=== PATIENT | male | born 1980 | race Caucasian/White ===

== ENCOUNTER 2022-01-02 00:22 | Emergency (ER) | payer MEDICAID ==
[~2022-01-02] VITALS: Ht 180.3 cm; Wt 75.5 kg
[2022-01-02 01:26] LABS: CLARITY,URINE CLOUDY (Clear); COLOR,URINE YELLOW (Yellow); GLUCOSE, URINE NEGATIVE (Neg); KETONES,URINE NEGATIVE (Neg); LEUKOCYTE ESTERASE ,URINE MODERATE (Neg); NITRITES, URINE POSITIVE (Neg); OCCULT BLOOD,URINE MODERATE (Neg); PH,URINE 6.5 (4.8-8.0); PROTEIN,URINE 30 mg/dl (Neg); UROBILINOGEN,URINE 0.2 E.U/dL (0.2-1.0)
[2022-01-02 01:29] LABS: UA COLLECTION TYPE CLN CATCH MIDSTREAM
[2022-01-02 01:31] LABS: SQUAMOUS EPITHELIAL CELL,UR FEW /LPF (FEW); WBC,URINE TNTC /HPF (0-4)
[2022-01-02 01:32] LABS: MUCUS STRANDS FEW /LPF (Neg)
[2022-01-02 01:33] LABS: BACTERIA,URINE 4+ /HPF (Neg)
[2022-01-02] MEDS ORDERED: cephalexin 250mg capsule PO ONE (03:55)
[2022-01-02 04:16] LABS: BASOPHILS # (AUTO) 0.1 X10'3 (0-0.2); BASOPHILS % (AUTO) 0.4 % (0-1); EOSINOPHILS # (AUTO) 0.1 X10'3 (0-0.9); EOSINOPHILS % (AUTO) 0.3 % (0-6); HEMATOCRIT 37.9 % (42.0-52.0); HEMOGLOBIN 12.6 g/dl (14.0-17.9); LYMPHOCYTES # (AUTO) 1.1 X10'3 (1.1-4.8); LYMPHOCYTES % (AUTO) 4.7 % (21-51); MEAN CORPUSCULAR HEMOGLOBIN 29.9 PG (27.0-31.0); MEAN CORPUSCULAR HGB CONC 33.2 g/dL (33.0-36.5); MEAN CORPUSCULAR VOLUME 89.8 FL (78-98); MEAN PLATELET VOLUME 6.5 FL (7.4-10.4); MONOCYTES # (AUTO) 2.1 X10'3 (0-0.9); NEUTROPHILS # (AUTO) 20.1 X10'3 (1.8-7.7); NEUTROPHILS % (AUTO) 85.6 % (42-75); PLATELET COUNT 319 X10'3 (140-440); RED BLOOD COUNT 4.22 X10'6 (4.70-6.10); RED CELL DISTRIBUTION WIDTH 14.5 % (11.5-14.5); WHITE BLOOD COUNT 23.4 X10'3 (4.5-11.0)
[2022-01-02 04:34] LABS: ANION GAP 3 (8-16); BLOOD UREA NITROGEN 11 MG/DL (7-18); CALCIUM 8.6 MG/DL (8.5-10.1); CHLORIDE 99 MMOL/L (99-107); GLUCOSE 158 MG/DL (70-104); POTASSIUM 3.6 MMOL/L (3.5-5.1); SODIUM 131 MMOL/L (135-145); TOTAL CARBON DIOXIDE 28.7 MMOL/L (24-32); eGFR 83 ML/MIN
[2022-01-02] MEDS ORDERED: CEPH-585 PO (05:18)
[2022-01-02] MEDS ORDERED: normal saline 1000ml 1,000 ML IV ONE ×2 (05:20)
[2022-01-02 07:12] VITALS: BP 142/90
== END 2022-01-02 07:14 | disposition home or self-care (01) ==
LOC: ER 00:23
DX: N10 Acute pyelonephritis (principal); R31.9 Hematuria, unspecified; N39.0 Urinary tract infection, site not specified; R10.84 Generalized abdominal pain; N50.811 Right testicular pain; R30.0 Dysuria; G89.29 Other chronic pain; Z79.2 Long term (current) use of antibiotics
CPT/HCPCS: 36415; 74176; 80048; 81001; 85025; 87077; 87088; 87186; 96360; 96361; 99284; J7030

== ENCOUNTER 2022-01-20 13:08 | Inpatient (IN) | payer MEDICAID ==
[~2022-01-20] VITALS: Ht 177.8 cm; Wt 68.2 kg
[~2022-01-20 13:08] MED LIST: CEPH-585 PO
[2022-01-20] MEDS ORDERED: CefTRIAXone 2gm/D5W 50ml BAG 50 ML IV ONE ×2 (13:20→14:55)
[2022-01-20] MEDS ORDERED: normal saline 1000ML IV soln IV ONE (13:20)
[2022-01-20] MEDS ORDERED: acetaminophen 325mg tablet PO STA (13:20)
[2022-01-20 14:16] LABS: BASOPHILS % (AUTO) 0.2 % (0-1); EOSINOPHILS % (AUTO) 0 % (0-6); HEMATOCRIT 37.2 % (42.0-52.0); HEMOGLOBIN 12.4 g/dl (14.0-17.9); LYMPHOCYTES # (AUTO) 0.8 X10'3 (1.1-4.8); MEAN CORPUSCULAR HEMOGLOBIN 29.6 PG (27.0-31.0); MEAN CORPUSCULAR HGB CONC 33.4 g/dL (33.0-36.5); MEAN CORPUSCULAR VOLUME 88.7 FL (78-98); MEAN PLATELET VOLUME 7.5 FL (7.4-10.4); MONOCYTES # (AUTO) 1.8 X10'3 (0-0.9); MONOCYTES % (AUTO) 8.8 % (2-12); NEUTROPHILS # (AUTO) 17.8 X10'3 (1.8-7.7); PLATELET COUNT 495 X10'3 (140-440); RED BLOOD COUNT 4.19 X10'6 (4.70-6.10); WHITE BLOOD COUNT 20.4 X10'3 (4.5-11.0)
[2022-01-20 14:26] LABS: LACTIC SEPSIS 1.4 MMOL/L (0.4-2.0)
[2022-01-20 14:36] LABS: ALANINE AMINOTRANSFERASE 76 U/L (12-78); ALBUMIN 3.1 G/DL (3.4-5.0); ALBUMIN/GLOBULIN RATIO 0.7 (1.1-1.5); ALKALINE PHOSPHATASE 262 IU/L (46-116); ANION GAP 10 (8-16); ASPARTATE AMINO TRANSFERASE 111 U/L (10-37); BILIRUBIN,TOTAL 0.9 MG/DL (0.1-1.0); BLOOD UREA NITROGEN 13 MG/DL (7-18); CHLORIDE 93 MMOL/L (99-107); ETHANOL < 0.010 GM/DL (0.0-0.010); GLUCOSE 123 MG/DL (70-104); MAGNESIUM 1.8 MG/DL (1.5-2.4); POTASSIUM 4.5 MMOL/L (3.5-5.1); SODIUM 129 MMOL/L (135-145); TOTAL CARBON DIOXIDE 25.9 MMOL/L (24-32); TOTAL PROTEIN 7.6 G/DL (6.4-8.2); eGFR 83 ML/MIN
[2022-01-20] MEDS ORDERED: DOXYCYCLINE 100MG CAPSULE PO STA (14:52)
[2022-01-20] MEDS ORDERED: normal saline 1000ml 1,000 ML IV ONE ×2 (14:55)
[2022-01-20] MEDS ORDERED: morphine 4 MG/ML inj SYRINge IV ONE (14:55)
[2022-01-20] MEDS ORDERED: ketorolac trometh. 30mg/ml inj. IV ONE (14:55)
[2022-01-20 16:06] LABS: CLARITY,URINE CLOUDY (Clear); COLOR,URINE YELLOW (Yellow); GLUCOSE, URINE NEGATIVE (Neg); KETONES,URINE NEGATIVE (Neg); LEUKOCYTE ESTERASE ,URINE SMALL (Neg); NITRITES, URINE POSITIVE (Neg); OCCULT BLOOD,URINE TRACE-INTACT (Neg); PROTEIN,URINE NEGATIVE (Neg)
[2022-01-20 16:11] LABS: UA COLLECTION TYPE URINAL
[2022-01-20 16:12] LABS: HYALINE CASTS 0-3 /LPF (NEGATIVE)
[2022-01-20 16:13] LABS: BACTERIA,URINE 2+ /HPF (Neg); RBC,URINE 0-2 /HPF (0-2); SQUAMOUS EPITHELIAL CELL,UR FEW /LPF (FEW)
[2022-01-20 16:19] LABS: URINE AMPHETAMINE SCREEN POSITIVE (Neg); URINE BARBITUATE SCREEN NEGATIVE (Neg); URINE BENZODIAZEPINES SCREEN NEGATIVE (Neg); URINE CANNABINOID SCREEN POSITIVE (Neg); URINE COCAINE SCREEN NEGATIVE (Neg); URINE METHADONE SCREEN NEGATIVE (Neg); URINE OPIATE SCREEN NEGATIVE (Neg); URINE PHENCYCLIDINE SCREEN NEGATIVE (Neg)
[2022-01-20] MEDS ORDERED: NO HOME MEDS (16:25)
--- NOTE | 2022-01-20 16:31 | NUR ---
pt diaphoretic and reports his iv is "falling out." new iv placed in left foerarm
[2022-01-20] MEDS ORDERED: magnesium 2GM in 50ml NS 50 ML IV PRN (17:15)
[2022-01-20] MEDS ORDERED: magnesium hydroxide 30ml (MOM) UD suspension PO PRN (17:15)
[2022-01-20] MEDS ORDERED: HYDROcodone/acetaminophen 5mg/325mg tablet PO PRN (17:15)
[2022-01-20] MEDS ORDERED: potassium Cl 20 mEq SR tablet PO PRN ×2 (17:15)
[2022-01-20] MEDS ORDERED: mag hydrox/Alum hydrox/simeth 30ml oral suspension PO PRN (17:15)
[2022-01-20] MEDS ORDERED: magnesium Cl slow-release 64mg tablet PO PRN (17:15)
[2022-01-20] MEDS ORDERED: ondansetron/PF 4mg/2ml inj IV PRN (17:15)
[2022-01-20] MEDS ORDERED: magnesium 4gm in 100ml NS 100 ML IV PRN (17:15)
[2022-01-20] MEDS ORDERED: morphine 2 MG/ML inj. syringe IV PRN ×2 (17:15)
[2022-01-20] MEDS ORDERED: acetaminophen 325mg tablet PO PRN (17:15)
[2022-01-20] MEDS ORDERED: potassium CL 10mEq/100ml bag 100 ML IV PRN (17:15)
[2022-01-20] MEDS: docusate sod 100mg capsule PO SCH (20:00)
[2022-01-20] MEDS: K and/or MAG REPLACEMENT MC SCH (20:00)
[2022-01-20] MEDS: DOXYCYCLINE 100MG CAPSULE PO SCH (21:51)
[2022-01-20] MEDS: dextrose 5%-1/2 normal saline 1,000 ML IV SCH (22:13)
[2022-01-21] MEDS: HYDROcodone/acetaminophen 10/325mg tab PO PRN ×2 (00:40→18:00)
[2022-01-21 04:06] VITALS: BP 109/62
[2022-01-21 06:01] LABS: BASOPHILS # (AUTO) 0.1 X10'3 (0-0.2); BASOPHILS % (AUTO) 0.5 % (0-1); EOSINOPHILS % (AUTO) 0.2 % (0-6); HEMATOCRIT 30.7 % (42.0-52.0); HEMOGLOBIN 10.1 g/dl (14.0-17.9); LYMPHOCYTES # (AUTO) 1.8 X10'3 (1.1-4.8); LYMPHOCYTES % (AUTO) 6.5 % (21-51); MEAN CORPUSCULAR HEMOGLOBIN 29.2 PG (27.0-31.0); MEAN CORPUSCULAR HGB CONC 32.8 g/dL (33.0-36.5); MEAN CORPUSCULAR VOLUME 89.3 FL (78-98); MEAN PLATELET VOLUME 7.7 FL (7.4-10.4); MONOCYTES # (AUTO) 2.8 X10'3 (0-0.9); MONOCYTES % (AUTO) 10.3 % (2-12); NEUTROPHILS # (AUTO) 22.4 X10'3 (1.8-7.7); NEUTROPHILS % (AUTO) 82.5 % (42-75); PLATELET COUNT 387 X10'3 (140-440); RED BLOOD COUNT 3.44 X10'6 (4.70-6.10); RED CELL DISTRIBUTION WIDTH 14.7 % (11.5-14.5)
[2022-01-21 06:05] LABS: WHITE BLOOD COUNT 27.1 X10'3 (4.5-11.0)
[2022-01-21 06:36] LABS: ALANINE AMINOTRANSFERASE 47 U/L (12-78); ALBUMIN 2.2 G/DL (3.4-5.0); ALBUMIN/GLOBULIN RATIO 0.7 (1.1-1.5); ALKALINE PHOSPHATASE 179 IU/L (46-116); ANION GAP 7 (8-16); ASPARTATE AMINO TRANSFERASE 45 U/L (10-37); BLOOD UREA NITROGEN 16 MG/DL (7-18); BUN/CREATININE RATIO 16.5 (5.4-32.0); CALCIUM 8.2 MG/DL (8.5-10.1); CHLORIDE 100 MMOL/L (99-107); CREATININE 0.97 MG/DL (0.60-1.10); GLUCOSE 90 MG/DL (70-104); MAGNESIUM 1.9 MG/DL (1.5-2.4); POTASSIUM 4.3 MMOL/L (3.5-5.1); SODIUM 135 MMOL/L (135-145); TOTAL CARBON DIOXIDE 28.1 MMOL/L (24-32); TOTAL PROTEIN 5.3 G/DL (6.4-8.2); eGFR 86 ML/MIN
[2022-01-21 06:49] LABS: PLATELET ESTIMATE NORMAL; TOTAL CELLS COUNTED 100
[2022-01-21 08:00] VITALS: BP 95/58
[2022-01-21] MEDS: DOXYCYCLINE 100MG CAPSULE PO SCH ×2 (08:45→19:47)
[2022-01-21] MEDS: enoxaparin 40mg/0.4ml syringe SUBCUT SCH (08:45)
[2022-01-21] MEDS: K and/or MAG REPLACEMENT MC SCH ×2 (08:45→19:41)
[2022-01-21] MEDS: docusate sod 100mg capsule PO SCH ×2 (08:45→19:47)
--- NOTE | 2022-01-21 08:45 | NUR ---
Met with patient in regards to substance use and to see if patient would like resources for treatment options. Patient is interested in treatment but he wants his to go with him. I gave patient beacons number, a community referral guide and my card to call me if he has any questions.
[2022-01-21] MEDS: CefTRIAXone/D5W-Rocephin 1gm 50 ML IV SCH (08:46)
[2022-01-21] MEDS: dextrose 5%-1/2 normal saline 1,000 ML IV SCH ×3 (08:46→23:15)
--- NOTE | 2022-01-21 09:40 | NUR ---
Malnutrition screen: Pt admit dx pyelonephritis and meth abuse per EMR. Pt reports 2-13 lb wt loss and decreased appetite per RN malnutrition screen. Pt has R testicle non-pitting edema, no muscle weakness, and no wounds per documentation. Pt w/ current scaled wt 68kg and no recent scaled wt hx, current scaled wt appropriate for age. Pending PO intake on regular diet. Pt lacks minimum two malnutrition criteria at this time. Will monitor for nutrient needs this admit. Addendum: 01/21/22 at 0941 by Jessica Cooper [facility] [facility] Coordinator TUSHAR Amended: Links added. Addendum: 01/21/22 at [address] I have reviewed and agree with note by Fitness And Wellness CoordinatorDaxa Roberts RD
[2022-01-21 12:00] VITALS: BP 95/47
[2022-01-21 19:00] VITALS: BP 107/71
[2022-01-22] VITALS: BP 103/62
[2022-01-22] MEDS: HYDROcodone/acetaminophen 10/325mg tab PO PRN ×2 (03:18→07:54)
[2022-01-22 06:20] LABS: BASOPHILS # (AUTO) 0.1 X10'3 (0-0.2); BASOPHILS % (AUTO) 0.4 % (0-1); EOSINOPHILS # (AUTO) 0.1 X10'3 (0-0.9); EOSINOPHILS % (AUTO) 0.8 % (0-6); HEMOGLOBIN 9.9 g/dl (14.0-17.9); LYMPHOCYTES # (AUTO) 1.9 X10'3 (1.1-4.8); LYMPHOCYTES % (AUTO) 9.6 % (21-51); MEAN CORPUSCULAR HEMOGLOBIN 29.2 PG (27.0-31.0); MEAN CORPUSCULAR VOLUME 88.5 FL (78-98); MEAN PLATELET VOLUME 7.7 FL (7.4-10.4); MONOCYTES # (AUTO) 1.5 X10'3 (0-0.9); MONOCYTES % (AUTO) 7.4 % (2-12); NEUTROPHILS # (AUTO) 16.1 X10'3 (1.8-7.7); NEUTROPHILS % (AUTO) 81.8 % (42-75); PLATELET COUNT 401 X10'3 (140-440); RED BLOOD COUNT 3.39 X10'6 (4.70-6.10); RED CELL DISTRIBUTION WIDTH 15.4 % (11.5-14.5); WHITE BLOOD COUNT 19.8 X10'3 (4.5-11.0)
--- NOTE | 2022-01-22 06:25 | NUR ---
Patient remains on pain management for testicle pain. Report given to [facility] nurse, RILEY Silva
[2022-01-22 06:54] LABS: ALANINE AMINOTRANSFERASE 43 U/L (12-78); ALBUMIN 2.2 G/DL (3.4-5.0); ALBUMIN/GLOBULIN RATIO 0.5 (1.1-1.5); ALKALINE PHOSPHATASE 179 IU/L (46-116); ANION GAP 7 (8-16); ASPARTATE AMINO TRANSFERASE 27 U/L (10-37); BILIRUBIN,TOTAL 0.3 MG/DL (0.1-1.0); BLOOD UREA NITROGEN 14 MG/DL (7-18); BUN/CREATININE RATIO 16.7 (5.4-32.0); CALCIUM 8.5 MG/DL (8.5-10.1); CHLORIDE 101 MMOL/L (99-107); CREATININE 0.84 MG/DL (0.60-1.10); FERRITIN 822 NG/ML (26-388); GLUCOSE 103 MG/DL (70-104); SODIUM 135 MMOL/L (135-145); TOTAL CARBON DIOXIDE 27.1 MMOL/L (24-32); TOTAL PROTEIN 6.8 G/DL (6.4-8.2); eGFR > 90 ML/MIN
[2022-01-22 07:00] VITALS: BP 96/55
[2022-01-22 07:45] LABS: % IRON SATURATION 12 % (11-46); IRON 21 UG/DL (53-167); TOTAL IRON BINDING CAPACITY 180 UG/DL (259-388)
[2022-01-22] MEDS: docusate sod 100mg capsule PO SCH ×2 (07:54→20:08)
[2022-01-22] MEDS: CefTRIAXone/D5W-Rocephin 1gm 50 ML IV SCH (07:54)
[2022-01-22] MEDS: DOXYCYCLINE 100MG CAPSULE PO SCH ×2 (07:54→20:08)
[2022-01-22] MEDS: enoxaparin 40mg/0.4ml syringe SUBCUT SCH (07:54)
[2022-01-22] MEDS: K and/or MAG REPLACEMENT MC SCH ×2 (07:55→20:00)
[2022-01-22] MEDS: dextrose 5%-1/2 normal saline 1,000 ML IV SCH ×2 (09:15→23:38)
[2022-01-22] MEDS ORDERED: ferrous sulfate ER tablet PO (10:22)
[2022-01-22] MEDS ORDERED: SULF1TAB49 PO (10:22)
[2022-01-22] MEDS ORDERED: DOXY-224 PO (10:22)
[2022-01-22 12:00] VITALS: BP 99/56
[2022-01-22 18:00] VITALS: BP 109/76
[2022-01-22] MEDS: ferrous sulfate ER tablet 140 MG TABLET.ER PO SCH (20:08)
[2022-01-23] VITALS: BP 110/69
[2022-01-23] MEDS: dextrose 5%-1/2 normal saline 1,000 ML IV SCH (05:15)
[2022-01-23 06:14] LABS: BASOPHILS # (AUTO) 0.1 X10'3 (0-0.2); BASOPHILS % (AUTO) 0.6 % (0-1); EOSINOPHILS # (AUTO) 0.2 X10'3 (0-0.9); EOSINOPHILS % (AUTO) 1.4 % (0-6); HEMATOCRIT 32.5 % (42.0-52.0); HEMOGLOBIN 10.7 g/dl (14.0-17.9); LYMPHOCYTES # (AUTO) 1.9 X10'3 (1.1-4.8); LYMPHOCYTES % (AUTO) 15.8 % (21-51); MEAN CORPUSCULAR HEMOGLOBIN 29.1 PG (27.0-31.0); MEAN CORPUSCULAR HGB CONC 32.9 g/dL (33.0-36.5); MEAN CORPUSCULAR VOLUME 88.7 FL (78-98); MEAN PLATELET VOLUME 7.4 FL (7.4-10.4); MONOCYTES # (AUTO) 0.9 X10'3 (0-0.9); MONOCYTES % (AUTO) 7.9 % (2-12); NEUTROPHILS # (AUTO) 8.9 X10'3 (1.8-7.7); NEUTROPHILS % (AUTO) 74.3 % (42-75); PLATELET COUNT 465 X10'3 (140-440); RED BLOOD COUNT 3.66 X10'6 (4.70-6.10); RED CELL DISTRIBUTION WIDTH 15.4 % (11.5-14.5)
[2022-01-23 06:32] LABS: ALANINE AMINOTRANSFERASE 36 U/L (12-78); ALBUMIN 2.3 G/DL (3.4-5.0); ALBUMIN/GLOBULIN RATIO 0.6 (1.1-1.5); ALKALINE PHOSPHATASE 171 IU/L (46-116); ANION GAP 7 (8-16); ASPARTATE AMINO TRANSFERASE 18 U/L (10-37); BILIRUBIN,TOTAL 0.2 MG/DL (0.1-1.0); BLOOD UREA NITROGEN 13 MG/DL (7-18); BUN/CREATININE RATIO 15.3 (5.4-32.0); CALCIUM 8.8 MG/DL (8.5-10.1); CHLORIDE 102 MMOL/L (99-107); CREATININE 0.85 MG/DL (0.60-1.10); GLUCOSE 126 MG/DL (70-104); MAGNESIUM 1.9 MG/DL (1.5-2.4); POTASSIUM 4.3 MMOL/L (3.5-5.1); SODIUM 136 MMOL/L (135-145); TOTAL CARBON DIOXIDE 26.7 MMOL/L (24-32); TOTAL PROTEIN 6.4 G/DL (6.4-8.2); eGFR > 90 ML/MIN
[2022-01-23 07:10] VITALS: BP 110/73
[2022-01-23] MEDS: docusate sod 100mg capsule PO SCH (07:37)
[2022-01-23] MEDS: DOXYCYCLINE 100MG CAPSULE PO SCH (07:37)
[2022-01-23] MEDS: CefTRIAXone/D5W-Rocephin 1gm 50 ML IV SCH (07:38)
[2022-01-23] MEDS: enoxaparin 40mg/0.4ml syringe SUBCUT SCH (08:00)
[2022-01-23] MEDS: K and/or MAG REPLACEMENT MC SCH (08:00)
[2022-01-23] MEDS: ferrous sulfate ER tablet 140 MG TABLET.ER PO SCH (08:00)
--- NOTE | 2022-01-23 10:42 | NUR ---
patient stable and appropriate for discharge home, iv removed, all belongings taken from room. new rx e-scripted to preferred pharmacy. all discharge instructions and education given and reviewed with patient, all questions answered.
== END 2022-01-23 10:45 | disposition home or self-care (01) | DRG 720 ==
LOC: ER 13:09 → ED HOLD 17:20 → SUR 3N 23:59
PROVIDERS: ADMIT Internal Medicine; ATTEND Internal Medicine
DX: A41.9 Sepsis, unspecified organism (principal); N12 Tubulo-interstitial nephritis, not specified as acute or chronic; N45.3 Epididymo-orchitis; B96.20 Unspecified Escherichia coli [E. coli] as the cause of diseases classified elsewhere; F17.210 Nicotine dependence, cigarettes, uncomplicated; D64.9 Anemia, unspecified; F15.10 Other stimulant abuse, uncomplicated; Z87.442 Personal history of urinary calculi; Z91.19 Patient's noncompliance with other medical treatment and regimen
CPT/HCPCS: 36415; 71045; 76870; 80053; 80305; 80320; 81001; 82140; 82607; 82728; 83540; 83550; 83605; 83735; 84145; 85007; 85025; 87040; 87077; 87081; 87088; 87186; 93005; 93976; 96365; 96375; 99285; G0378; J0696; J1650; J1885; J2270; J7030; J7042